=== PATIENT | male | born 2000 | race Caucasian/White ===

== ENCOUNTER 2022-03-24 01:15 | Emergency (ER) | payer SELFPAY ==
[~2022-03-24] VITALS: Ht 180.3 cm; Wt 77.0 kg
[2022-03-24] MEDS ORDERED: LORAZEPAM 2MG/ML CPJ IM PRN (01:30)
[2022-03-24] MEDS ORDERED: ZIPRASIDONE MESYLATE 20MG/VIAL IM ONE (01:45)
[2022-03-24] MEDS ORDERED: ZIPRASIDONE MESYLATE 20MG/VIAL IM SCH (02:00)
[2022-03-24 05:40] VITALS: BP 109/53
== END 2022-03-24 06:10 | disposition home or self-care (01) ==
LOC: ER 01:15
DX: F19.959 Other psychoactive substance use, unspecified with psychoactive substance-induced psychotic disorder, unspecified (principal); T40.711A Poisoning by cannabis, accidental (unintentional), initial encounter; Y92.89 Other specified places as the place of occurrence of the external cause
CPT/HCPCS: 96372; 99285; J2060; J3486